=== PATIENT | male | born 1945 | race Caucasian/White ===

== ENCOUNTER → 2018-10-22 | Outpatient (CLI) | payer MEDICARE, OTHER ==
[~2018-10-22] MED LIST: ASPIRIN; DILT120 PO; DILT120ERA PO; PRAV20 PO; ROFL500T; SYMBICORT; TAMS.4ER PO; TIOT18 INH; XARELTO20 MG PO
[2018-10-22 11:44] LABS: Source, Urine Clean Catch
[2018-10-22 12:22] LABS: Bilirubin, Urine Neg (Neg); Blood, Urine Neg (Neg); Glucose Qualitative, Urine Neg (Neg); Ketones, Urine Neg (Neg); Leukocyte Esterase, Urine Neg (Neg); Nitrite, Urine Neg (Neg); Protein, Urine Neg (Neg); Urobilinogen, Urine NORM (Normal)
[2018-10-22 12:28] LABS: Appearance, Urine Clear (Clear); Color, Urine Yellow (P-Yellow)
== END ==
LOC: LAB SHORT 11:38 → LAB 11:38
PROVIDERS: Family Medicine
DX: N39.42 Incontinence without sensory awareness (principal); R35.1 Nocturia
CPT/HCPCS: 81003

== ENCOUNTER 2019-05-26 15:36 | Observation (INO) | payer MEDICARE, OTHER ==
[~2019-05-26] VITALS: Ht 188 cm; Wt 115.4 kg
[~2019-05-26 15:36] MED LIST changes: -ALBU90OI INH; -Aspir 8181 MG PO; -BUDE6HFA INH; -DILT120 PO; -FINA5 PO; -PRAV20 PO; -ROFL500T PO; -TAMS.4ER PO; -TIOT18 INH
[2019-05-26 17:55] LABS: BASOPHILS ABSOLUTE AUTO 0.06 K/mm3 (0.00-0.23); BASOPHILS PERCENT AUTO 1 % (0-2); EOSINOPHILS ABSOLUTE AUTO 0.22 K/mm3 (0.00-0.68); EOSINOPHILS PERCENT AUTO 2 % (0-6); Hematocrit 40.8 % (37.0-53.0); IMMATURE GRAN ABSOLUTE AUTO 0.04 K/mm3 (0.00-0.10); IMMATURE GRAN PERCENT AUTO 0 % (0-1); LYMPHOCYTES ABSOLUTE AUTO 2.27 K/mm3 (0.84-5.20); LYMPHOCYTES PERCENT AUTO 22 % (21-46); MONOCYTES ABSOLUTE AUTO 1.19 K/mm3 (0.16-1.47); MONOCYTES PERCENT AUTO 12 % (4-13); Mean Corpuscular HGB 30.9 pg (26.0-34.0); Mean Corpuscular HGB Conc 31.9 g/dL (31.5-36.5); Mean Corpuscular Volume 97 fL (80-100); Mean Platelet Volume 10.2 fL (9.1-12.4); NEUTROPHILS ABSOLUTE AUTO 6.54 K/mm3 (1.96-9.15); NEUTROPHILS PERCENT AUTO 63 % (41-73); Platelet Count 258 K/mm3 (150-400); RDW Coefficient Variation 13.6 % (11.7-14.2); RDW Standard Deviation 48.7 fL (35.1-46.3); Red Blood Cell Count 4.21 M/mm3 (4.30-5.90); White Blood Cell Count 10.32 K/mm3 (4.00-11.30)
[2019-05-26 18:13] LABS: Albumin, Blood 3.6 g/dL (3.4-5.0); Albumin/Globulin Ratio 0.9 (0.8-1.8); Bilirubin, Total 0.4 mg/dL (0.1-1.0); Bun/Creatinine Ratio 16.9 (12.0-20.0); Calcium, Blood 9.5 mg/dL (8.5-10.1); Creatinine, Blood 2.36 mg/dL (0.60-1.20); Globulin, Blood 3.9 g/dL (2.2-4.0); Potassium, Blood 4.8 mmol/L (3.5-5.5); Total Protein, Blood 7.5 g/dL (6.4-8.2)
[2019-05-26] MEDS ORDERED: TAMS.4ER PO (18:51)
[2019-05-26] MEDS ORDERED: PRAV20 PO (18:51)
[2019-05-26] MEDS ORDERED: ALBU90OI INH (18:52)
[2019-05-26] MEDS ORDERED: TIOT18 INH (18:53)
[2019-05-26] MEDS ORDERED: DILT120 PO (18:53)
[2019-05-26] MEDS ORDERED: BUDE6HFA INH (18:53)
[2019-05-26] MEDS ORDERED: ROFL500T PO (18:54)
[2019-05-26 19:16] LABS: Source, Urine Clean Catch
[2019-05-26] MEDS ORDERED: Aspir 8181 MG PO (19:19)
[2019-05-26 19:21] LABS: Appearance, Urine Clear (Clear); Bilirubin, Urine Neg (Neg); Blood, Urine Neg (Neg); Color, Urine Yellow (P-Yellow); Glucose Qualitative, Urine Neg (Neg); Ketones, Urine Neg (Neg); Leukocyte Esterase, Urine Neg (Neg); Nitrite, Urine Neg (Neg); Protein, Urine Neg (Neg); Urobilinogen, Urine NORM (Normal); pH, Urine 6.5 (5.0-8.0)
[2019-05-26 19:48] LABS: Creatinine, Urine Random 39.2 mg/dL (27.00-270.00)
--- NOTE | 2019-05-26 22:08 | NUR ---
transfer report from GEODESY TEACHERASHANTI Moffett on PT being admitted with acute kidney injury and acute urinary retention with 2450 ml urinary retention seen on renal ultrasound. Crowley cath was placed and drained bloody urine with clots. Await admission.
[2019-05-27 05:15] LABS: BASOPHILS ABSOLUTE AUTO 0.05 K/mm3 (0.00-0.23); BASOPHILS PERCENT AUTO 0 % (0-2); EOSINOPHILS ABSOLUTE AUTO 0.09 K/mm3 (0.00-0.68); EOSINOPHILS PERCENT AUTO 1 % (0-6); Hematocrit 42.4 % (37.0-53.0); Hemoglobin 13.3 g/dL (13.5-17.5); IMMATURE GRAN ABSOLUTE AUTO 0.06 K/mm3 (0.00-0.10); IMMATURE GRAN PERCENT AUTO 1 % (0-1); LYMPHOCYTES ABSOLUTE AUTO 1.35 K/mm3 (0.84-5.20); LYMPHOCYTES PERCENT AUTO 10 % (21-46); MONOCYTES PERCENT AUTO 9 % (4-13); Mean Corpuscular HGB 30.4 pg (26.0-34.0); Mean Corpuscular HGB Conc 31.4 g/dL (31.5-36.5); Mean Corpuscular Volume 97 fL (80-100); NEUTROPHILS ABSOLUTE AUTO 10.22 K/mm3 (1.96-9.15); NEUTROPHILS PERCENT AUTO 79 % (41-73); Platelet Count 251 K/mm3 (150-400); RDW Coefficient Variation 13.7 % (11.7-14.2); RDW Standard Deviation 49.1 fL (35.1-46.3); Red Blood Cell Count 4.38 M/mm3 (4.30-5.90); White Blood Cell Count 12.97 K/mm3 (4.00-11.30)
[2019-05-27 05:41] LABS: Albumin, Blood 3.1 g/dL (3.4-5.0); Albumin/Globulin Ratio 0.9 (0.8-1.8); Bilirubin, Total 0.5 mg/dL (0.1-1.0); Bun/Creatinine Ratio 16.2 (12.0-20.0); Calcium, Blood 8.9 mg/dL (8.5-10.1); Creatinine, Blood 2.4 mg/dL (0.60-1.20); Globulin, Blood 3.3 g/dL (2.2-4.0); Potassium, Blood 5.1 mmol/L (3.5-5.5); Total Protein, Blood 6.4 g/dL (6.4-8.2)
[2019-05-27] MEDS ORDERED: TAMS.4ER PO (17:50)
--- NOTE | 2019-05-27 19:42 | NUR ---
SUMMARY- PT ALERT AND ORIENTED. PT HAS 3WAY WINTERS IRRIGATION. ABLE TO DECREASE IRRIGANT FLOW THROUGH THE SHIFT. DRAINING PINK WITH NO CLOTS. PT UP TO BSC X2 HAD BM'S. TOLERATING FOOD AND FLUIDS. DENIED PAIN ALL DAY. AT BEDSIDE MOST OF THE DAY . DISCHARGE WRITTEN FOR DC IN AM 0800 SO PT CAN MAKE IT TO UROLOGY APT IN [place] BY 1015. /PT AND NIGHT AWARE. PT'S IF INFILTRATED ON RF, BRUISING PRESENT AND INFILTRATION OF SALINE. APPLIED PRESSURE DRESSING AND CHANGED TO REG GAUZE DRESSING.
[2019-05-28 05:21] LABS: BASOPHILS ABSOLUTE AUTO 0.04 K/mm3 (0.00-0.23); BASOPHILS PERCENT AUTO 0 % (0-2); EOSINOPHILS ABSOLUTE AUTO 0.26 K/mm3 (0.00-0.68); EOSINOPHILS PERCENT AUTO 2 % (0-6); Hematocrit 42.7 % (37.0-53.0); Hemoglobin 13.6 g/dL (13.5-17.5); IMMATURE GRAN ABSOLUTE AUTO 0.05 K/mm3 (0.00-0.10); IMMATURE GRAN PERCENT AUTO 0 % (0-1); LYMPHOCYTES ABSOLUTE AUTO 2.08 K/mm3 (0.84-5.20); LYMPHOCYTES PERCENT AUTO 17 % (21-46); MONOCYTES PERCENT AUTO 12 % (4-13); Mean Corpuscular HGB 30.4 pg (26.0-34.0); Mean Corpuscular HGB Conc 31.9 g/dL (31.5-36.5); Mean Corpuscular Volume 95 fL (80-100); Mean Platelet Volume 10.8 fL (9.1-12.4); NEUTROPHILS ABSOLUTE AUTO 8.66 K/mm3 (1.96-9.15); NEUTROPHILS PERCENT AUTO 69 % (41-73); Platelet Count 251 K/mm3 (150-400); RDW Coefficient Variation 13.8 % (11.7-14.2); RDW Standard Deviation 48.7 fL (35.1-46.3); Red Blood Cell Count 4.48 M/mm3 (4.30-5.90); White Blood Cell Count 12.59 K/mm3 (4.00-11.30)
[2019-05-28 05:45] LABS: Percent Saturation 27.6 % (20.0-50.0)
[2019-05-28 05:57] LABS: Alanine Aminotransfer (ALT/SGP 17 U/L (12-78); Albumin, Blood 2.8 g/dL (3.4-5.0); Albumin/Globulin Ratio 0.8 (0.8-1.8); Alk Phos 67 U/L (50-136); Anion Gap 5 mmol/L (6-16); Aspartate Aminotrans (AST/SGOT 14 U/L (12-37); Bilirubin, Total 0.5 mg/dL (0.1-1.0); Blood Urea Nitrogen 39 mg/dL (8-24); Bun/Creatinine Ratio 17.9 (12.0-20.0); CO2, Blood 27 mmol/L (21-32); Calcium, Blood 8.5 mg/dL (8.5-10.1); Chloride, Blood 110 mmol/L (98-108); Creatinine, Blood 2.18 mg/dL (0.60-1.20); Globulin, Blood 3.4 g/dL (2.2-4.0); Glomerular Filtration Rate 32 (60-); Glucose, Blood 110 mg/dL (70-99); Potassium, Blood 4.6 mmol/L (3.5-5.5); Sodium, Blood 142 mmol/L (136-145); Total Protein, Blood 6.2 g/dL (6.4-8.2)
--- NOTE | 2019-05-28 07:55 | NUR ---
PATIENT D/C'D TO HOME WITH . [facility] STOPPED AND 3 WAY CATHETER PULGGED FOR TRANSPORT TO [place] FOR UROLOGY APPT AT 1015. DC MEDICATIONS FAXED TO [facility] ON [address]. DC INSTRUCTIONS AND EDUCATION DISCUSSED WITH PATIENT AND COPY PROVIDED. PATIENT DENIES ANY FURTHER QUESTIONS OR CONCERNS.
--- NOTE | 2019-05-28 07:58 | NUR ---
73 YEAR [employer]LD [employer] WHO SPECIALIZED IN COMMUNICATIONS WITH AFLUTTER , LUPUS, OBSTRUCTIVE UROPATHY CONTINUED TO NEED CBI VIA #18 DANISH WINTERS CATH DUE TO HEMATURIA. HE HAS COPD NOCTURNAL HYPOXIA BUT DECLINES SUPPLEMENT OXYGEN WHICH HE SAID HE USES PRN AT [facility]. EDUCATED ON WINTERS CATH CARE PROVIDED SUPPLIES AND EXTRA BEDSIDE DRAIN, LEGBAG, MEASURING DEVICE SECURING DEVICES AND GLOVES PADS AND ALCOHOL WIPES, CATH PLUGS. PT DC TO [facility] TO PROVIDE TRANSPORT TO UROLOGY APPT IN [place]. pt GIVEN OPTION TO HAVE FOLLOWUP APPT IN 6 DAYS VERSUS THIS AM AND HE DECLINED. TOLERATING DIET AND SOME DIZZINESS WITH ACTIVITY THIS AM. TO PROVIDE TRANSPORT TO [place] UROLOGY APPT FOR 2450 URINARY RETENTION AND ACUTE KIDNEY INJURY.
== END 2019-05-28 07:52 | disposition home or self-care (01) ==
LOC: US 15:36 → MEDS 15:37 → EDSTATUS 16:00 → US 16:00 → MEDS 22:26
PROVIDERS: Emergency Medicine; Internal Medicine; ADMIT Internal Medicine
DX: N17.9 Acute kidney failure, unspecified (principal); N13.30 Unspecified hydronephrosis; J44.9 Chronic obstructive pulmonary disease, unspecified; I48.0 Paroxysmal atrial fibrillation; N40.1 Benign prostatic hyperplasia with lower urinary tract symptoms; R31.9 Hematuria, unspecified; Z99.81 Dependence on supplemental oxygen; Z79.82 Long term (current) use of aspirin; Z79.51 Long term (current) use of inhaled steroids; Z79.899 Other long term (current) drug therapy
CPT/HCPCS: 36415; 51700; 51702; 51703; 76770; 80053; 81003; 82570; 82728; 83540; 83550; 83690; 83930; 83935; 84300; 84540; 85025; 94640; 94760; 99285-25; G0103; G0378; J3010; J7030

== ENCOUNTER → 2019-05-26 | Outpatient (CLI) | payer MEDICARE, OTHER ==
[~2019-05-26] MED LIST changes: +ALBU90OI INH; +Aspir 8181 MG PO; +BUDE6HFA INH; +FINA5 PO; -ROFL500T; +ROFL500T PO; -SYMBICORT
[2019-05-26 16:55] LABS: Appearance, Urine Clear (Clear); Bilirubin, Urine Neg (Neg); Blood, Urine Neg (Neg); Color, Urine Yellow (P-Yellow); Glucose Qualitative, Urine Neg (Neg); Ketones, Urine Neg (Neg); Leukocyte Esterase, Urine Neg (Neg); Nitrite, Urine Neg (Neg); Protein, Urine Neg (Neg); Urobilinogen, Urine NORM (Normal)
[2019-05-26 17:24] LABS: Creatinine, Urine Random 38.5 mg/dL (27.00-270.00)
[2019-05-26 17:27] LABS: Microalb/Creat Ratio UR, Rand 28.312 mg/g (0.000-30.000); Microalbumin, Random Urine 10.9 mg/L (0.000-20.000)
== END | disposition home or self-care (01) ==
LOC: LAB SHORT 14:43 → LAB 14:43
PROVIDERS: Student in an Organized Health Care Education/Training Program
DX: N17.9 Acute kidney failure, unspecified (principal)
CPT/HCPCS: 81003; 82043; 82570

== ENCOUNTER 2019-05-31 06:22 | Emergency (ER) | payer MEDICARE, OTHER ==
[~2019-05-31] VITALS: Ht 188 cm; Wt 113.4 kg
[~2019-05-31 06:22] MED LIST changes: +ALBU90OI INH; +Aspir 8181 MG PO; +BUDE6HFA INH; +DILT120 PO; +PRAV20 PO; +ROFL500T PO; +TAMS.4ER PO; +TIOT18 INH
[2019-05-31] MEDS ORDERED: FINA5 PO (06:40)
== END 2019-05-31 07:13 | disposition home or self-care (01) ==
LOC: ER 06:22
DX: T83.098A Other mechanical complication of other urinary catheter, initial encounter (principal); J44.9 Chronic obstructive pulmonary disease, unspecified; I48.92 Unspecified atrial flutter; N40.0 Benign prostatic hyperplasia without lower urinary tract symptoms; Z79.82 Long term (current) use of aspirin; Z79.899 Other long term (current) drug therapy; Z87.891 Personal history of nicotine dependence
CPT/HCPCS: 99282